=== PATIENT | female | born 1995 | race Two or more races ===

== ENCOUNTER → 2025-05-05 | Outpatient (CLI) | payer MEDICAID, SELFPAY ==
--- NOTE | 2025-05-05 10:15 | XR_ITS ---
Examination: Transvaginal ultrasound of the pelvis, complete Technique: Transvaginal sonographic images pelvis performed using dalton scale imaging Exam date and time: May 05, 2025 1031 hours INDICATIONS: Pelvic pain beginning 2 months ago FINDINGS: Absent uterus Right ovary 3.6 cm arterial flow prominent follicles including 18 x 17 x 18 mm cyst with internal echoes Left ovary obscured by bowel gas IMPRESSION: Limited study Multiple right ovarian follicles.
--- NOTE | 2025-05-05 10:15 | XR_ITS ---
Examination: Pelvic ultrasound, transabdominal, complete Technique: Transabdominal ultrasound of the pelvis performed using grayscale imaging Date and time of exam: 01/05/2025 1026 hours INDICATIONS: Pelvic pain beginning 2 months ago FINDINGS: Absent uterus Right ovary 3.2 cm arterial flow Left ovary obscured by bowel gas IMPRESSION: Limited study Please see the transvaginal pelvic sonogram report
== END | disposition home or self-care (01) ==
PROVIDERS: PCP Physician Assistant; Referring Provider Physician Assistant; Visit Provider Physician Assistant
DX: N83.201 Unspecified ovarian cyst, right side (principal)
CPT/HCPCS: 76830; 76856